=== PATIENT | female | born 1970 | race Caucasian/White ===

== ENCOUNTER 2017-11-17 15:07 | Outpatient (CLI) | payer BC, SELFPAY ==
[2017-11-17 15:46] LABS: Abs Immature Grans 0.01 k/cumm (0.0-0.09); Absolute Basophil Count 0.03 k/cumm (0.0-0.2); Absolute Eosinophil Count 0.09 k/cumm (0.0-0.7); Absolute Lymphocyte Count 2.37 k/cumm (1.2-3.4); Absolute Monocyte Count 0.42 k/cumm (0.11-0.7); Absolute Neutrophil Count 3.85 k/cumm (1.2-6.7); Basophils % 0.4; Eosinophils % 1.3; HCT 39.3 % (36.0-46.0); HGB 13.4 g/dL (12.0-15.5); Immature Grans % 0.1; Mean Corp. HGB Concentration 34.1 g/dL (32.0-36.0); Mean Corpuscular Hemoglobin 32.6 pg (27.0-33.0); Mean Corpuscular Volume 95.6 fL (80-95); Mean Platelet Volume 8.7 fL (8.0-11.0); Monocytes % 6.2; Platelet Count 274 x1000/uL (130-400); RBC 4.11 m/cumm (4.00-5.20); RBC Distribution Width 12.6 % (11.7-14.6); White Blood Cell Count 6.77 k/cumm (4.4-10.8)
[2017-11-17 16:22] LABS: ALT 18 U/L (12-78); AST 18 U/L (15-37); Albumin 3.8 g/dL (3.4-5.0); Alkaline Phosphatase 55 U/L (46-116); Anion Gap 8.5 mmol/L (3-11); BUN 15 mg/dL (7-18); Bilirubin, Total 0.3 mg/dL (0.2-1.0); CO2 25.5 mmol/L (21.0-32.0); CREATININE 0.73 mg/dL (0.55-1.02); Calcium 8.2 mg/dL (8.5-10.1); Chloride 106 mmol/L (98-107); Glucose 97 mg/dL (70-100); Potassium 3.9 mmol/L (3.5-5.1); Sodium 140 mmol/L (136-145); Total Protein 7.6 g/dL (6.4-8.2)
== END 2017-11-17 15:08 ==
PROVIDERS: PCP Nurse Practitioner Family; Visit Provider Internal Medicine Rheumatology
DX: Z79.899 Other long term (current) drug therapy (principal); M25.50 Pain in unspecified joint
CPT/HCPCS: 36415; 80053; 85025

== ENCOUNTER 2018-01-02 12:43 | Outpatient (CLI) | payer BC, SELFPAY ==
[2018-01-06 15:07] LABS: TB Interpretation Positive (NEGAT)
== END 2018-01-02 13:03 ==
PROVIDERS: PCP Nurse Practitioner Family; Visit Provider Internal Medicine Rheumatology
DX: Z20.1 Contact with and (suspected) exposure to tuberculosis (principal)
CPT/HCPCS: 36415; 80053; 85025; 86480

== ENCOUNTER 2018-01-19 16:14 | Outpatient (CLI) | payer BC, SELFPAY ==
[2018-01-19 16:42] LABS: Absolute Basophil Count 0.03 k/cumm (0.0-0.2); Absolute Eosinophil Count 0.11 k/cumm (0.0-0.7); Absolute Lymphocyte Count 1.71 k/cumm (1.2-3.4); Absolute Monocyte Count 0.38 k/cumm (0.11-0.7); Absolute Neutrophil Count 2.73 k/cumm (1.2-6.7); Basophils % 0.6; Eosinophils % 2.2; HGB 12.7 g/dL (12.0-15.5); Lymphocytes % 34.5; Mean Corp. HGB Concentration 33.4 g/dL (32.0-36.0); Mean Corpuscular Hemoglobin 32.6 pg (27.0-33.0); Mean Corpuscular Volume 97.7 fL (80-95); Mean Platelet Volume 8.7 fL (8.0-11.0); Monocytes % 7.7; Platelet Count 281 x1000/uL (130-400); RBC 3.89 m/cumm (4.00-5.20); RBC Distribution Width 11.9 % (11.7-14.6); White Blood Cell Count 4.96 k/cumm (4.4-10.8)
[2018-01-19 16:51] LABS: ALT 20 U/L (12-78); AST 18 U/L (15-37); Albumin 3.4 g/dL (3.4-5.0); Alkaline Phosphatase 74 U/L (46-116); Anion Gap 8.8 mmol/L (3-11); BUN 14 mg/dL (7-18); Bilirubin, Total 0.2 mg/dL (0.2-1.0); CO2 27.2 mmol/L (21.0-32.0); CREATININE 0.63 mg/dL (0.55-1.02); Calcium 7.7 mg/dL (8.5-10.1); Chloride 107 mmol/L (98-107); Glucose 109 mg/dL (70-100); Potassium 3.7 mmol/L (3.5-5.1); Sodium 143 mmol/L (136-145); Total Protein 6.7 g/dL (6.4-8.2)
== END 2018-01-19 16:34 ==
PROVIDERS: PCP Nurse Practitioner Family; Visit Provider Internal Medicine Rheumatology
DX: Z79.899 Other long term (current) drug therapy (principal)
CPT/HCPCS: 80053; 85025

== ENCOUNTER 2018-04-25 15:41 | Outpatient (REF) | payer BC, SELFPAY | END 2018-04-25 16:01 | LOC: LBN 15:41 | PROVIDERS: PCP Nurse Practitioner Family; Visit Provider Family Medicine | DX: J01.90 Acute sinusitis, unspecified (principal) | CPT/HCPCS: 87449 ==

== ENCOUNTER 2019-03-20 11:01 | Outpatient (CLI) | payer BC, SELFPAY ==
[2019-03-20 13:49] LABS: TSH (W/Ref FT4) 1.58 uIU/mL (0.36-3.74)
== END 2019-03-20 11:21 ==
PROVIDERS: PCP Nurse Practitioner Family; Visit Provider Nurse Practitioner
DX: R63.5 Abnormal weight gain (principal)
CPT/HCPCS: 36415; 84443

== ENCOUNTER 2020-11-11 14:28 | Outpatient (CLI) | payer BC, SELFPAY ==
--- NOTE | 2020-11-11 14:15 | DI.RAD_ITS ---
Exam(s) XR SHOULDER LT COMPLETE 2+V EXAM: XR SHOULDER LT COMPLETE 2+V CLINICAL HISTORY: L shoulder pain TECHNIQUE: COMPARISON: No exams were available for comparison FINDINGS: Two views were obtained. There appears to be moderate thinning of the cartilaginous joint space of t he glenohumeral joint. The bones of the shoulder appear intact except for minimal marginal osteophyt e formation the glenohumeral joint inferiorly. No soft tissue abnormality seen. IMPRESSION: Mild DJD glenohumeral joint. RADIATION DOSE DELIVERED: Total DLP
== END 2020-11-11 14:29 | disposition home or self-care (01) ==
LOC: DIORS 14:29
PROVIDERS: PCP Nurse Practitioner Family; Referring Provider Nurse Practitioner Family; Visit Provider Physician Assistant
DX: M19.012 Primary osteoarthritis, left shoulder (principal)
CPT/HCPCS: 73030

== ENCOUNTER 2020-11-13 12:47 | Outpatient (REF) | payer BC, SELFPAY ==
--- NOTE | 2020-11-13 10:30 | ENDOMET_PTH ---
PATIENT: Nora Kirkpatrick LOC: [facility] U#:[id number] AGE/SX: 50/F ROOM: RE11/13/[address]: Latisha Preciado : 1970 BED: DIS: 11/13/2020 SPEC #: [id number] RECD: 11/13/20 13:25 STATUS: ARAM REQ #: [id number] PRERNA: 11/13/20 10:[address]: Latisha Preciado DEPT: Surgical Specimen RECD BY: Argelia Quach ENTERED: 11/13/20 13:25 SP TYPE: Endomet OTHR DR: Aaliyah Sanchez APRN Tissues: 1 - ENDOMETRIUM BX/CURRETTE Procedures: GROSS AND MICRO LEVEL 4 Comments: [id number]
== END 2020-11-13 12:48 | disposition home or self-care (01) ==
LOC: LBN 12:47
PROVIDERS: PCP Nurse Practitioner Family; Visit Provider Obstetrics & Gynecology Gynecology
DX: N93.8 Other specified abnormal uterine and vaginal bleeding (principal); N84.0 Polyp of corpus uteri; N85.8 Other specified noninflammatory disorders of uterus
CPT/HCPCS: 88305

== ENCOUNTER 2021-11-11 13:10 | Outpatient (REF) | payer BC, SELFPAY ==
[2021-11-11 21:12] LABS: Abs Immature Grans 0.01 10^3/uL (0.0-0.06); Absolute Basophil Count 0.04 10^3/uL (0.0-0.2); Absolute Eosinophil Count 0.08 10^3/uL (0.0-0.7); Absolute Lymphocyte Count 2.65 10^3/uL (1.2-3.4); Absolute Monocyte Count 0.33 10^3/uL (0.1-0.8); Absolute Neutrophil Count 2.64 10^3/uL (1.2-6.7); Basophils % 0.7; Eosinophils % 1.4; HCT 38.4 % (36.0-46.0); HGB 13.2 g/dL (11.2-15.7); Immature Grans % 0.2; Lymphocytes % 46.1; MCH 31.7 pg (27.0-33.0); MCHC 34.4 % (32.0-36.0); MCV 92 fL (80-95); Monocytes % 5.7; Neutrophils % 45.9; Platelet Count 253 10^3/uL (130-400); RBC 4.16 10^6/uL (3.93-5.22); RDW 11.6 % (11.7-14.6); RDW-SD 39.1 fL; WBC 5.75 10^3/uL (4.4-10.8)
[2021-11-11 21:30] LABS: Anion Gap 6.8 mmol/L (3-11); BUN 17 mg/dL (7-18); CO2 28.2 mmol/L (21.0-32.0); CREATININE 0.6 mg/dL (0.55-1.02); Chloride 103 mmol/L (98-107); Glucose 90 mg/dL (74-106); Potassium 4.1 mmol/L (3.5-5.1); Sodium 138 mmol/L (136-145)
[2021-11-13 11:24] LABS: Lyme Ab w Rflx to Lyme Confirm Negative (Negative)
[2021-11-17 21:47] LABS: Anaplasma phagocytophilum Negative (Negative); B. miyamotoi PCR Negative (Negative); Babesia divergens/MO-1 Negative (Negative); Babesia duncani Negative (Negative); Babesia microti Negative (Negative); Ehrlichia chaffeensis Negative (Negative); Ehrlichia ewingii/canis Negative (Negative); Ehrlichia muris eauclairensis Negative (Negative)
== END 2021-11-11 13:11 | disposition home or self-care (01) ==
LOC: LBN 13:10
PROVIDERS: PCP Nurse Practitioner Family; Visit Provider Nurse Practitioner Family
DX: J32.9 Chronic sinusitis, unspecified (principal); R53.83 Other fatigue; M79.18 Myalgia, other site; R53.81 Other malaise
CPT/HCPCS: 80048; 87798; 85025; 86618

== ENCOUNTER → 2022-02-19 00:45 | Outpatient (CLI) | payer BC, SELFPAY ==
--- NOTE | 2022-02-19 08:48 | DI.MAMMO_ITS ---
Exam(s) MAMMO SCREENING EXAM: MAMMO SCREENING CLINICAL HISTORY: screening,z12.39 TECHNIQUE: Bilateral full field digital CC and MLO mammographic images were obtained with 3D tomosyn thesis and utilizing computer aided detection (CAD). COMPARISON: Available for comparison. FINDINGS: Masses/Architectural Distortion: None seen. Microcalcifications: No suspicious pleomorphic-type are seen. Skin Thickening/Nipple Retraction: None. IMPRESSION: 1. No significant interval change with no specific features of malignancy noted. 2. Unless there is more urgent need, screening mammography is recommended, as per [employer] guidelines. BI-RADS Category 1 - Negative Breast Density - Category C - Heterogeneously dense Breast density category C or D implies that the patient has dense breast tissue. Dense breast tissue is very common and is not abnormal but dense breast tissue can make it harder to find cancer on a ma mmogram. Also, dense breast tissue may increase their breast cancer risk. This information about the result of the mammogram report was provided to the patient to raise their awareness. Use this report when you speak with the patient about their risks for breast cancer, which includes their family hist ory. At that time, you may recommend for more screening tests (Ultrasound or MRI) as they might be us eful based on their risk. A negative radiographic report should not delay biopsy if a dominant or clinically suspicious mass is present. Up to ten percent of cancers are not identified on mammography. A negative report may reinforce clinical impression. Adenosis and dense breasts may obscure an underlying neoplasm. False positive reports average 6 to 10%. Patient will receive a letter notifying them of these results.
== END ==
PROVIDERS: PCP Nurse Practitioner Family; Visit Provider Nurse Practitioner Family
DX: Z12.31 Encounter for screening mammogram for malignant neoplasm of breast (principal); R92.8 Other abnormal and inconclusive findings on diagnostic imaging of breast
CPT/HCPCS: 77063; 77067

== ENCOUNTER 2022-02-22 04:21 | Outpatient (CLI) | payer BC, SELFPAY ==
[2022-02-22 12:50] LABS: Calculated LDL 144 mg/dL (<100); Cholesterol 246 mg/dL (<200); HDL Cholesterol 79 mg/dL (40-60); Triglyceride 115 mg/dL (<150)
== END 2022-02-22 04:22 | disposition home or self-care (01) ==
LOC: LOS 04:21
PROVIDERS: PCP Nurse Practitioner Family; Visit Provider Nurse Practitioner Family
DX: E78.5 Hyperlipidemia, unspecified (principal)
CPT/HCPCS: 36415; 80061

== ENCOUNTER 2022-12-02 09:50 | Day surgery (SDC) | payer BC, SELFPAY ==
--- NOTE | 2022-12-01 21:32 | PDOC.DSDIS_ITS ---
Date of service: 12/02/22 Time of Service: 12:27 Discharge Plan Disposition Patient Disposition: Home Condition: Good Discharge Details Reason For Visit: EGD and colonoscopy Attending Provider: Vikram Kruse Primary Care Provider: Steph Brown Home Meds and New Rx's Prescriptions: Continued cbd oil sublingual QHS Humira 40 mg/0.8 mL syringe kit 40 mg subcut Q2W ibuprofen 600 mg tablet See Rx Instructions PO .COMPLEX PRN (Reason: pain) Rx Instructions: 200-600 mg orally PRN; 09/15/17 Le[facility] Rheum calcium carbonate [Tums] 200 mg calcium (500 mg) Tablet,Chewable 200 mg PO DIRECTED omeprazole 20 mg Tablet,Delayed Release (Dr/Ec) 20 mg PO BID Discontinued polyethylene glycol 3350 17 gram/dose powder 238 g PO ONCE Qty: 238 0RF Rx Instructions: take per colonoscopy instructions bisacodyl [Dulcolax (bisacodyl)] 5 mg tablet,delayed release (DR/EC) 5 mg PO ONCE Qty: 4 0RF Rx Instructions: take per colonoscopy instructions Discharge Instructions Additional Instructions: Stephen, We were able to complete your endoscopies today without any problems. Your upper endoscopy is largely reassuring. You did have a little bit of bile in the stomach, which can be quite irritating in some patients. I have added a prescription for a medication called sucralfate. This works a little better to neutralize bile salts, and you may find it more relieving than Tums. We can give it a trial and see how it works. There was a minimal amount of irregularity on the Z-line, which is the area that connects your esophagus to your stomach. I do not think it appears consistent with Yarbrough's esophagus. I did, however, perform biopsies all along your stomach, as well as at this GE junction to make sure there is nothing out of the ordinary here. I will be in touch when I have the results of the pathology report. Your colonoscopy was totally normal. There is no evidence of polyps or tumors anywhere along the large intestine. You will need another colonoscopy in 10 y ears. 1. If tolerated, consume a soft, low fiber diet for 1-2 days. 2. Do not drive, drink alcohol, operate machinery, make critical decisions, or do activities that require coordination or balance for 24 hours. 3. Because air was put into your colon during the procedure, expelling air from your rectum (passing gas or farting) is normal. 4. You may not have a bowel movement for 1-3 days because of the colonoscopy prep. This is normal. 5. You may experience a sore throat for 24 to 48 hours. You may use throat lozenges or gargle with warm salt water to relieve the discomfort. 6. Because air was put into your stomach during the procedure, you may experience some belching. 7. Go directly to the emergency room if you notice any of the following: Develop chills (warm to touch), or if you have a thermometer and your temperature is above 101 Difficulty breathing or difficultly swallowing Persistent vomiting Severe abdominal pain, other than gas cramps Severe chest pain Black, tarry stools Any bleeding ? exceeding one tablespoon 8. Call your physician if the site where your intravenous was started becomes red, swollen, painful, and warm to touch. 9. Your physician has reviewed your pre-procedure medications. Please continue to take those medications as previously ordered. You will be given specific information/education regarding any changes to your medications before leaving. Stand Alone Forms: Anesthesia Discharge Inst., Shantel Ramirez (DSU) Activity:: Activity as Tolerated Diet:: As Tolerated Discharge Orders Discharge Orders: Discharge Order (Routine); Ordered 12/01/22 Ordered By: Vikram Kruse DS: Diagnosis Discharge Diagnosis (1) Epigastric pain: Status: Acute
--- NOTE | 2022-12-01 21:33 | ENDO_ITS ---
Date of service: 12/02/22 Time of Service: 12:30 Endoscopy Report DATE OF PROCEDURE: 12/02/22 PRE-OP DIAGNOSIS: Epigastric pain with GERD and screening colonoscopy POST-OP DIAGNOSIS: other (Bile reflux) PROCEDURE: EGD with biopsies and colonoscopy SURGEON: Vikram Kruse ANESTHESIA TYPE: General:No Airway ESTIMATED BLOOD LOSS: 10 PATHOLOGY: other (Biopsies of the duodenum, gastric antrum and body, GE junction) COMPLICATIONS: None DISPOSITION: same day INDICATIONS: Stephen is a 52 year woman with longstanding GERD that has been refractory to PPI therapy. She also needs a screening colonoscopy. PREP: Miralax/Dulcolax PROCEDURE START TIME: 11:39 PROCEDURE END TIME: 12:08 COLONOSCOPY RETRACTION TIME: 8 FINDINGS: Mild irregularity of the Z-line, which does not appear consistent with Yarbrough's esophagus. Bile reflux. Negative screening colonoscopy PROCEDURE DESCRIPTION: After the initiation of monitored anesthetic care, and with the assistance of a bite block, I advanced a standard gastroscope through the mouth past the h ypopharynx and into the esophagus.? Under the direct vision of the scope, I advanced down the esophagus into the stomach.? Once I entered the stomach, I performed a brief inspection, followed by retroflexion towards the gastric cardia.? Stomach had a fair amount of bile. The mucosa appeared normal.? I did not see signs of active gastritis after that, I gently advanced the scope around the incisura angularis and examined the pylorus.? The pylorus was open.? Next, I advanced the scope through the pylorus into the duodenum.? The mucosa was pink and healthy appearing.? There were no abnormalities.? I was able to visualize bile draining into the duodenum through the ampulla Vater. I perform random biopsies of the duodenum using cold forceps. There was minimal bleeding. ?Next, I began retracting the endoscope.? I brought the camera back into the stomach fully evacuated its liquid contents, and carefully examined the entire lining. There is no evidence of any polyps tumors or any other abnormalities. Retroflexion did not demonstrate a significant hiatal hernia. I perform random biopsies of the gastric antrum and body to rule out microscopic gastritis. I brought the camera up to the GE junction was at 35 cm. There was a minimal amount of irregularity of the Z-line. It did not appear consistent with Yarbrough's esophagus. I did, however, perform some random biopsies of the GE ju nction to rule out any metaplasia. I then withdrew the camera along the length of the esophagus taking great care to examine the lining appropriately. It all looked normal. We adjusted Nora into the left lateral decubitus position. I began by performing an external anorectal exam.? Perineum and skin were normal, as was the anal verge.? There were some external skin tags consistent with old fibrosed hemorrhoids.? Next, I performed a digital rectal exam.? I did not appreciate any abnormal findings.? Next, I advanced a colonoscope into the rectal vault.? I performed retroflexion.? This appeared normal using insufflation, I then advanced the colonoscope beyond the rectal folds and into the sigmoid colon before advancing towards the cecum.? The quality of the prep was excellent.? The scope was noted to be in the cecum by identification of the ileocecal valve and appendiceal orifice.? I then began withdrawing the colonoscope using repeated irrigation as necessary for full evaluation of the colonic mucosa. ?Once the scope was withdrawn to the level of the rectum, great care was taken to examine portions of the rectal folds. Throughout the colonoscopy, I did not see any signs of any tumors, polyps, or any other abnormalities.? Finally, the scope was withdrawn and the patient was brought to the same-day surgery recovery unit as the anesthetic wore off. ?The findings and instructions were shared with the patient prior to discharge.
[2022-12-02] MEDS: Lactated Ringers 1,000 ML 80 ML IV (10:15)
[2022-12-02 10:19] VITALS: BP 113/80; PULSE 64; RESP 16; TEMP 37.1; O2SAT 98
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
[2022-12-02 11:30] VITALS: BMI 20.9
--- NOTE | 2022-12-02 11:45 | STOM_PTH ---
PATIENT: Nora Kirkpatrick LOC: [facility] U#:[id number] AGE/SX: 52/F ROOM: RE12/02/[address]: Vikram Kruse MD : 1970 BED: DIS: 12/02/2022 SPEC #: [id number] RECD: 12/02/22 13:11 STATUS: ARAM [facility] #: [id number] PRERNA: 12/02/22 11:[address]: Vikram Kruse DEPT: Surgical Specimen RECD BY: Argelia Quach ENTERED: 12/02/22 13:12 SP TYPE: STOMACH OTHR DR: Steph Brown APRN Tissues: 1 - BIOPSY BOWEL 2 - STOMACH BIOPSY 3 - STOMACH BIOPSY 4 - ESOPHAGUS BIOPSY Procedures: GROSS AND MICRO LEVEL 4 Comments: [id number]
[2022-12-02 12:16] VITALS: BP 108/78; PULSE 68; RESP 16; TEMP 36.6; O2SAT 96
--- NOTE | 2022-12-02 12:42 | W.ANESPOSTOP ---
Postoperative Evaluation Date, Time and Location Date Performed: 12/02/22 Time Performed: 12:19 Patient Location: Day Surgery Unit Vital Signs Most Recent Imported Vital Signs: Most Recent Vital Signs Temp Pulse Resp BP Pulse Ox 36.6 C 68 16 108/78 96 12/02/22 12:16 12/02/22 12:16 12/02/22 12:16 12/02/22 12:16 12/02/22 12:16 Pain Score Most Recent Pain Score: Most Recent Pain Score Pain Level 1 12/02/22 12:16 Assessment Mental Status: Awake (Alert & Oriented to Patient Baseline) Airway and Respiratory Function: Patent airway with normal (patient baseline) respiratory exam Cardiovascular Function: Hemodynamically Stable Hydration Status: Adequately Hydrated Nausea & Vomiting: No Nausea or Vomiting Pain: Pain is tolerable per patient (cramping) Peripheral Nerve Block: Patient did not receive a nerve block
[2022-12-02 12:47] VITALS: BP 109/73; PULSE 58; RESP 16; TEMP 36.5; O2SAT 98
== END 2022-12-02 09:51 | disposition home or self-care (01) ==
PROVIDERS: PCP Nurse Practitioner; Visit Provider Surgery
PROC: (CPT 45378; principal; 2022-12-02 12:00)
DX: K21.9 Gastro-esophageal reflux disease without esophagitis (principal); Z12.11 Encounter for screening for malignant neoplasm of colon; K22.9 Disease of esophagus, unspecified
CPT/HCPCS: 45378; 43239; 88305; J2405

== ENCOUNTER 2023-02-16 11:25 | Outpatient (REF) | payer BC, SELFPAY ==
--- NOTE | 2023-02-16 11:00 | PAPFT_PTH ---
PATIENT: Nora Kirkpatrick LOC: [facility] U#:[id number] AGE/SX: 52/F ROOM: RE02/16/[address]: Latisha Preciado : 1970 BED: DIS: 02/16/2023 SPEC #: [id number] RECD: 02/16/23 12:47 STATUS: ARAM RESarbjit #: [id number] PRERNA: 02/16/23 11:[address]: Latisha Preciado DEPT: [facility] Cytology RECD BY: Argelia Quach ENTERED: 02/16/23 12:47 SP TYPE: PAPFT OTHR DR: Steph Brown APRN Tissues: 1 - CX/ENDOCX FOR PAP SMEARS Procedures: PAP THIN PREP/[facility] Screening HPV DNA PROBE Comments: [id number]
== END 2023-02-16 11:26 | disposition home or self-care (01) ==
LOC: LBN 11:25
PROVIDERS: PCP Nurse Practitioner; Visit Provider Obstetrics & Gynecology Gynecology
DX: Z12.4 Encounter for screening for malignant neoplasm of cervix (principal); Z11.51 Encounter for screening for human papillomavirus (HPV)
CPT/HCPCS: 88142; 87624

== ENCOUNTER 2024-03-15 02:17 | Outpatient (CLI) | payer BC, SELFPAY ==
--- NOTE | 2024-03-15 07:25 | DI.MAMMO_ITS ---
Exam(s) MAMMO SCREENING EXAM: MAMMO SCREENING CLINICAL HISTORY: screening,Z12.39 TECHNIQUE: Mammograms were interpreted according to the usual protocol including computer analysis w [employer] CAD system, tomosynthesis and C-view imaging. COMPARISON: 2016 and 2021 FINDINGS: The breasts are composed of scattered fibroglandular densities, Breast Density category B. No suspicious masses or suspicious microcalcifications are seen. No skin thickening or abnormal axillary lymph nodes are seen. There has been no significant change from prior exams. IMPRESSION: BI-RADS Category 1, Negative mammogram Yearly screening mammography is recommended. Breast Density - Category B, scattered fibroglandular densities. A negative radiographic report should not delay biopsy if a dominant or clinically suspicious mass is present. Up to ten percent of cancers are not identified on mammography. A negative report may reinforce clinical impression. Adenosis and dense breasts may obscure an underlying neoplasm. False positive reports average 6 to 10%. Patient will receive a letter notifying them of these results.
== END 2024-03-15 02:37 ==
PROVIDERS: PCP Nurse Practitioner; Visit Provider Nurse Practitioner
DX: Z12.31 Encounter for screening mammogram for malignant neoplasm of breast (principal); R92.323 Mammographic fibroglandular density, bilateral breasts
CPT/HCPCS: 77063; 77067

== ENCOUNTER 2024-03-26 18:18 | Outpatient (REF) | payer BC, SELFPAY | END 2024-03-26 18:19 | disposition home or self-care (01) | LOC: NCHCN 18:18 | PROVIDERS: PCP Nurse Practitioner; Visit Provider Physician Assistant | DX: R30.0 Dysuria (principal) | CPT/HCPCS: 87086 ==

== ENCOUNTER 2024-09-20 16:53 | Outpatient (CLI) | payer BC, SELFPAY ==
--- NOTE | 2024-09-20 16:30 | DI.RAD_ITS ---
Exam(s) XR LUMBAR SPINE COMPLETE EXAM: XR LUMBAR SPINE COMPLETE CLINICAL HISTORY: M54.50 Low back pain, evaluate pathology. TECHNIQUE: 2D digital imaging was performed. COMPARISON: CT ABD PELVIS WITH CONTRAST from 06/05/2016 FINDINGS: Five views There is transitional anatomy. There are 6 non rib-bearing vertebral bodies in the lumbar spine. Mild scoliosis convex right. There is no evidence of fracture, listhesis, nor pars defects. There is no significant disc space narrowing. Some facet arthropathy noted at L4-5 and L5-S1 levels. Sacroiliac joints appear unremarkable. Bone density normal. No osseous lesions. Incidentally noted is a calcification in the right upper quadrant which may be a right kidney stone. This measures 5 mm. IMPRESSION: Mild scoliosis convex right. No fractures nor listhesis. No osseous lesions 5 millimeter right side T12 level finding which is possibly a calculus in the upper aspect of the right kidney. Transitional anatomy noted in the lumbar spine. DATA REPOSITORY: RADIATION DOSE DELIVERED:
--- NOTE | 2024-09-20 17:32 | DI.VRAD_ITS ---
PROCEDURE INFORMATION: Exam: XR Lumbosacral Spine Exam date and time: 09/20/2024 4:55 PM Age: 54 years old Clinical indication: Low back pain TECHNIQUE: Imaging protocol: Radiologic exam of the lumbosacral spine. Views: 4 or 5 views. COMPARISON: No relevant prior studies available. FINDINGS: Bones/joints: There is some straightening of the lumbar lordosis. There is 4 mm anterolisthesis of L5 on S1 with more mild anterolisthesis of L4 on L5. There is mild disc space narrowing from L3-5, likely degenerative. There is mild facet arthrosis of lower lumbar spine. No acute compression fractures or displaced fractures are identified. There is mild lumbar dextroscoliosis. There is mild asymmetric narrowing of the left SI joint with mild periarticular sclerosis consistent with mild degenerative change. There is no spondylolysis. Soft tissues: Unremarkable. IMPRESSION: 1. Mild degenerative changes of the lumbosacral spine, as described above. 2. Mild grade 1 anterolisthesis from L4-S1, likely chronic and degenerative. 3. Mild lumbar dextroscoliosis. 4. Some straightening of the lumbar lordosis, which can be seen in the setting of muscle spasm. Dictated and Authenticated by: Maxim Stewart MD. Orderin Laura San MD
== END 2024-09-20 17:13 ==
LOC: DI 16:54
PROVIDERS: PCP Nurse Practitioner; Visit Provider Nurse Practitioner Family
DX: M41.26 Other idiopathic scoliosis, lumbar region (principal); R93.421 Abnormal radiologic findings on diagnostic imaging of right kidney
CPT/HCPCS: 72110

== ENCOUNTER 2025-03-13 01:34 | Outpatient (CLI) | payer BC, SELFPAY ==
[2025-03-13 13:48] LABS: Abs Immature Grans 0.00 10^3/uL (0.0-0.06); HCT 40.1 % (36.0-46.0); HGB 13.7 g/dL (11.2-15.7); Immature Grans % 0.0 %; MCH 32.1 pg (27.0-33.0); MCHC 34.2 % (32.0-36.0); MCV 94 fL (80-95); MPV 8.4 fL (8.0-11.0); Platelet Count 271 10^3/uL (130-400); RBC 4.27 10^6/uL (3.93-5.22); RDW 12.1 % (11.7-14.6); RDW-SD 41.3 fL; WBC 5.85 10^3/uL (4.4-10.8)
[2025-03-13 15:26] LABS: ALT 27 U/L (10-49); AST 32 U/L (<34); Albumin 4.3 g/dL (3.2-5.0); Alkaline Phosphatase 71 U/L (46-116); Anion Gap 8.2 mmol/L (3-11); BUN 14 mg/dL (9-23); Bilirubin, Total 0.50 mg/dL (0.2-1.2); CO2 27.8 mmol/L (20.0-31.0); Calcium 9.2 mg/dL (8.3-10.6); Chloride 103 mmol/L (98-107); Glucose 98 mg/dL (74-106); Potassium 3.7 mmol/L (3.5-5.1); Sodium 139 mmol/L (136-145); Total Protein 7.5 g/dL (5.7-8.2)
== END 2025-03-13 01:35 | disposition home or self-care (01) ==
LOC: LBO 01:34
PROVIDERS: PCP Nurse Practitioner; Visit Provider Nurse Practitioner Family
DX: Z79.899 Other long term (current) drug therapy (principal)
CPT/HCPCS: 36415; 80053; 85025